=== PATIENT | male | born 1975 | race Hispanic/Latino ===

== ENCOUNTER 2023-09-23 19:20 | Inpatient (IN) | payer OTHER ==
[~2023-09-23] VITALS: Ht 180.3 cm; Wt 107.7 kg
[2023-09-23] MEDS: CEPHALEXIN 500 MG CAPSULE PO ONE (19:58)
[2023-09-23] MEDS: ACETAMINOPHEN 500 MG TABLET PO ONE (19:59)
[2023-09-23] MEDS: TETANUS/DIPHTHERIA TOXOID [ADULT] 0.5 ML VIAL IM ONE (20:00)
[2023-09-23] MEDS: NEOMY SULF/BACITRA/POLYMYXIN B 1 EACH PACKET TP ONE (20:00)
[2023-09-23] MEDS: LIDOCAINE HCL 1% 20 ML VIAL INJ SCH (20:00)
[2023-09-23] MEDS: CEFAZOLIN SODIUM 2 GM VIAL IVPB SCH (22:11)
[2023-09-23] MEDS ORDERED: IOHEXOL 350 MG/ML 100ML INFUS..BTL IV ONE (22:37)
[2023-09-23 22:40] LABS: BASOPHILS # (AUTO) 0.06 K/uL (0.00-0.20); BASOPHILS % (AUTO) 0.4 % (0.0-5.0); EOSINOPHILS # (AUTO) 0.06 K/uL (0.00-0.70); EOSINOPHILS % (AUTO) 0.4 % (0.0-8.0); HEMATOCRIT 44.9 % (42-54); IMMATURE GRANULOCYTE ABSOLUTE 0.05 K/uL (0-1); LYMPHOCYTES # (AUTO) 2.4 K/uL (1.0-4.8); LYMPHOCYTES % (AUTO) 14.9 % (21.0-51.0); MEAN CORPUSCULAR HEMOGLOBIN 28.4 pg (27.0-33.0); MEAN CORPUSCULAR HGB CONC 33.6 g/dL (32.0-36.0); MEAN CORPUSCULAR VOLUME 84.6 fL (79-99); MONOCYTES # (AUTO) 1.2 K/uL (0.1-1.0); MONOCYTES % (AUTO) 7.2 % (3.0-13.0); NEUTROPHILS # (AUTO) 12.5 K/uL (1.8-7.7); NEUTROPHILS % (AUTO) 76.8 % (40.0-77.0); PLATELET COUNT (AUTO) 237 K/uL (130-400); RED BLOOD CELL COUNT(AUTO) 5.31 MIL/uL (4.50-6.20); RED CELL DISTRIBUTION WIDTH 13.8 % (11.0-15.5); WHITE BLOOD COUNT (AUTO) 16.3 K/uL (4.8-10.8)
[2023-09-23] MEDS: ONDANSETRON 4MG INJ IVP ONE (22:47)
[2023-09-23] MEDS: MORPHINE 2 MG SYG IVP ONE (22:48)
[2023-09-23] MEDS: 0.9%NACL 1000ML 1,000 ML IV SCH (22:48)
[2023-09-23 22:49] LABS: CREATININE 1.4 mg/dL (0.5-1.3); POTASSIUM 3.4 mmol/L (3.5-5.1)
[2023-09-23 23:03] LABS: INR 1.11 (0.85-1.15)
[2023-09-23 23:04] LABS: PARTIAL THROMBOPLASTIN TIME 25.7 SEC (26.3-35.5)
[2023-09-24] MEDS ORDERED: LACTULOSE 20 GM/30 ML UDCUP PO PRN (00:30)
[2023-09-24] MEDS ORDERED: CEFAZOLIN SODIUM IV SCH (00:30)
[2023-09-24] MEDS ORDERED: DiphenhydrAMINE HCL 50 MG/ML VIAL IV PRN (00:30)
[2023-09-24] MEDS ORDERED: [UNRECOGNIZED DRUG - OTHER] IV SCH (00:30)
[2023-09-24] MEDS ORDERED: ONDANSETRON 4MG INJ IV PRN (00:30)
[2023-09-24] MEDS ORDERED: ACETAMINOPHEN 325 MG TAB PO PRN (00:30)
[2023-09-24] MEDS ORDERED: GUAIFENESIN-DM 200/20 MG 10 ML PO PRN (00:30)
[2023-09-24] MEDS ORDERED: FAMOTIDINE 20MG VIAL IV PRN (00:30)
[2023-09-24] MEDS ORDERED: ZOLPIDEM TARTRATE 5 MG TAB PO PRN (00:30)
[2023-09-24] MEDS ORDERED: MAG/ALUM/SIMETH 30 ML UDCUP PO PRN (00:30)
[2023-09-24] MEDS ORDERED: NITROGLYCERIN 0.4 MG SL TAB SL PRN (00:30)
[2023-09-24] MEDS ORDERED: HYDRALAZINE 20MG/ML VIAL IV PRN (00:30)
[2023-09-24] MEDS: MORPHINE 2 MG SYG IVP PRN (00:54)
[2023-09-24] MEDS: 0.9%NACL 1000ML 1,000 ML IV SCH (00:56)
[2023-09-24] MEDS: CEFAZOLIN SODIUM 1 GM VIAL IVPB SCH (01:00)
[2023-09-24 01:14] LABS: BASOPHILS # (AUTO) 0.05 K/uL (0.00-0.20); BASOPHILS % (AUTO) 0.4 % (0.0-5.0); EOSINOPHILS # (AUTO) 0.08 K/uL (0.00-0.70); EOSINOPHILS % (AUTO) 0.6 % (0.0-8.0); HEMATOCRIT 41.2 % (42-54); IMMATURE GRANULOCYTE ABSOLUTE 0.05 K/uL (0-1); LYMPHOCYTES # (AUTO) 1.8 K/uL (1.0-4.8); LYMPHOCYTES % (AUTO) 13.3 % (21.0-51.0); MEAN CORPUSCULAR HEMOGLOBIN 29.2 pg (27.0-33.0); MEAN CORPUSCULAR HGB CONC 33.5 g/dL (32.0-36.0); MEAN CORPUSCULAR VOLUME 87.1 fL (79-99); MONOCYTES % (AUTO) 7.3 % (3.0-13.0); NEUTROPHILS # (AUTO) 10.5 K/uL (1.8-7.7); PLATELET COUNT (AUTO) 197 K/uL (130-400); RED BLOOD CELL COUNT(AUTO) 4.73 MIL/uL (4.50-6.20); RED CELL DISTRIBUTION WIDTH 13.8 % (11.0-15.5); WHITE BLOOD COUNT (AUTO) 13.4 K/uL (4.8-10.8)
[2023-09-24] MEDS: TRAMADOL HCL 50 MG TABLET PO PRN (01:57)
[2023-09-24 02:08] LABS: APPEARANCE,URINE CLEAR (CLEAR); BILIRUBIN,URINE NEGATIVE (NEGATIVE); COLOR,URINE COLORLESS (YELLOW); GLUCOSE, URINE (UA) NEGATIVE (NEGATIVE); KETONES,URINE NEGATIVE (NEGATIVE); LEUKOCYTE ESTERASE ,URINE NEGATIVE Leu/uL (NEGATIVE); NITRATE,URINE NEGATIVE (NEGATIVE); OCCULT BLOOD,URINE NEGATIVE (NEGATIVE); PH,URINE 6.5 (5.0-8.0); PROTEIN,URINE NEGATIVE (NEGATIVE); UROBILINOGEN,URINE 0.2 mg/dL (0.2-1.0)
[2023-09-24 02:13] LABS: SQUAMOUS EPITHELIAL CELL,UR RARE /HPF (0-2); WBC,URINE 0-1 /HPF (0-1)
[2023-09-24] MEDS ORDERED: OLME20TA68 PO (02:20)
[2023-09-24 02:40] VITALS: BP 156/75; PULSE 80; RESP 16
[2023-09-24] MEDS: INSULIN HUMULIN R 100 UNIT/ML 3ML SQ SCH (06:05)
[2023-09-24 08:00] VITALS: BP 155/76; PULSE 89; RESP 18
[2023-09-24] MEDS: HEPARIN 5,000 UNIT VIAL SQ SCH (09:00)
[2023-09-24] MEDS: FAMOTIDINE 20MG VIAL IV SCH (10:39)
[2023-09-24 12:00] VITALS: BP 156/75; PULSE 90; RESP 18
[2023-09-24 15:59] VITALS: TEMP 102.3
[2023-09-24] MEDS: ACETAMINOPHEN 325 MG TAB PO PRN (15:59)
[2023-09-24 16:00] VITALS: BP 147/77; PULSE 86; RESP 18
[2023-09-24] MEDS ORDERED: DEXAMETHASONE SOD PHOSPHATE 4 MG/ML 1ML VIAL IV ONE (18:30)
[2023-09-24 19:00] VITALS: BP 146/79; PULSE 81; RESP 22
[2023-09-24] MEDS: [UNRECOGNIZED DRUG - OTHER] IV ONE (19:20)
[2023-09-24] MEDS: DEXAMETHASONE IV ONE (19:20)
[2023-09-25] VITALS (9 sets, daily range): BP systolic 132–148; BP diastolic 62–79; PULSE 60–80; RESP 16–24; O2SAT 92–95
[2023-09-25 06:10] LABS: BASOPHILS # (AUTO) 0.01 K/uL (0.00-0.20); BASOPHILS % (AUTO) 0.1 % (0.0-5.0); HEMATOCRIT 43.4 % (42-54); IMMATURE GRANULOCYTE ABSOLUTE 0.06 K/uL (0-1); LYMPHOCYTES # (AUTO) 1.3 K/uL (1.0-4.8); LYMPHOCYTES % (AUTO) 8.4 % (21.0-51.0); MEAN CORPUSCULAR HEMOGLOBIN 28.9 pg (27.0-33.0); MEAN CORPUSCULAR HGB CONC 33.4 g/dL (32.0-36.0); MEAN CORPUSCULAR VOLUME 86.6 fL (79-99); MONOCYTES % (AUTO) 5.9 % (3.0-13.0); NEUTROPHILS # (AUTO) 13.6 K/uL (1.8-7.7); NEUTROPHILS % (AUTO) 85.2 % (40.0-77.0); PLATELET COUNT (AUTO) 210 K/uL (130-400); RED BLOOD CELL COUNT(AUTO) 5.01 MIL/uL (4.50-6.20); RED CELL DISTRIBUTION WIDTH 14.4 % (11.0-15.5)
[2023-09-25 06:23] LABS: INR 1.3 (0.85-1.15)
[2023-09-25 06:37] LABS: HEMOGLOBIN A1C 6.2 % (4.0-6.0)
[2023-09-25 06:44] LABS: ALBUMIN 3.8 g/dL (3.5-5.0); BILIRUBIN,TOTAL 0.9 mg/dL (0.2-1.0); CREATININE 1.1 mg/dL (0.5-1.3); MAGNESIUM 1.8 mg/dL (1.80-2.40); POTASSIUM 3.8 mmol/L (3.5-5.1); THYROID STIMULATING HORMONE 0.17 uIU/mL (0.36-3.74); TOTAL PROTEIN, SERUM 7.6 g/dL (6.0-8.3)
[2023-09-25] MEDS: MAGNESIUM 2GM PREMIX 50ML 50 ML IV PRN (07:08)
[2023-09-26] VITALS: BP 137/89; PULSE 85; RESP 16
[2023-09-26 03:41] VITALS: BP 154/86; PULSE 60; RESP 16
[2023-09-26 04:28] LABS: BASOPHILS # (AUTO) 0.04 K/uL (0.00-0.20); BASOPHILS % (AUTO) 0.3 % (0.0-5.0); EOSINOPHILS # (AUTO) 0.08 K/uL (0.00-0.70); EOSINOPHILS % (AUTO) 0.6 % (0.0-8.0); HEMATOCRIT 42.6 % (42-54); IMMATURE GRANULOCYTE ABSOLUTE 0.06 K/uL (0-1); LYMPHOCYTES # (AUTO) 2.8 K/uL (1.0-4.8); LYMPHOCYTES % (AUTO) 19.5 % (21.0-51.0); MEAN CORPUSCULAR HEMOGLOBIN 29.1 pg (27.0-33.0); MEAN CORPUSCULAR HGB CONC 33.1 g/dL (32.0-36.0); MONOCYTES # (AUTO) 1.5 K/uL (0.1-1.0); MONOCYTES % (AUTO) 10.8 % (3.0-13.0); NEUTROPHILS # (AUTO) 9.7 K/uL (1.8-7.7); NEUTROPHILS % (AUTO) 68.4 % (40.0-77.0); PLATELET COUNT (AUTO) 192 K/uL (130-400); RED BLOOD CELL COUNT(AUTO) 4.84 MIL/uL (4.50-6.20); RED CELL DISTRIBUTION WIDTH 14.1 % (11.0-15.5); WHITE BLOOD COUNT (AUTO) 14.2 K/uL (4.8-10.8)
[2023-09-26 04:52] LABS: ALBUMIN 3.3 g/dL (3.5-5.0); BILIRUBIN,TOTAL 0.6 mg/dL (0.2-1.0); CREATININE 1.2 mg/dL (0.5-1.3); POTASSIUM 3.5 mmol/L (3.5-5.1); TOTAL PROTEIN, SERUM 6.9 g/dL (6.0-8.3)
[2023-09-26 08:00] VITALS: BP 142/78; PULSE 72; RESP 18; O2SAT 97
[2023-09-26] MEDS: ACETAMINOPHEN 325 MG TAB PO PRN (11:15)
[2023-09-26 12:00] VITALS: BP 135/71; PULSE 68; RESP 17
== END 2023-09-26 17:30 | disposition short-term general hospital (02) | DRG 85 ==
LOC: EDH 19:20 → EDHIP 09-24 00:27 → 3BH 09-24 02:23
PROVIDERS: ADMIT Hospitalist; ATTEND Hospitalist
PROC: 0HQ1XZZ Repair Face Skin, External Approach (ICD-10-PCS; principal; 2023-09-23)
PROC: 09QKXZZ Repair Nasal Mucosa and Soft Tissue, External Approach (ICD-10-PCS; 2023-09-23)
PROC: 3E0234Z Introduction of Serum, Toxoid and Vaccine into Muscle, Percutaneous Approach (ICD-10-PCS; 2023-09-23)
DX: S02.19XA Other fracture of base of skull, initial encounter for closed fracture (principal); N17.0 Acute kidney failure with tubular necrosis; T79.7XXA Traumatic subcutaneous emphysema, initial encounter; R65.10 Systemic inflammatory response syndrome (SIRS) of non-infectious origin without acute organ dysfunction; S01.82XA Laceration with foreign body of other part of head, initial encounter; K40.90 Unilateral inguinal hernia, without obstruction or gangrene, not specified as recurrent; I10 Essential (primary) hypertension; D72.829 Elevated white blood cell count, unspecified; E66.9 Obesity, unspecified; T38.0X5A Adverse effect of glucocorticoids and synthetic analogues, initial encounter; V18.4XXA Pedal cycle driver injured in noncollision transport accident in traffic accident, initial encounter; Y93.55 Activity, bike riding; Y99.8 Other external cause status; Z68.33 Body mass index [BMI] 33.0-33.9, adult; Z23 Encounter for immunization
CPT/HCPCS: 36415; 70450; 70486; 71101; 71250; 72125; 74176; 80048; 80053; 81001; 82550; 82948; 83036; 83605; 83735; 83880; 84100; 84443; 85025; 85610; 85730; 87088; 90471; 90714; 96365; 96375; G0378; J0690; J1100; J1644; J2270; J2405; J3475; J3490; J7030; Q9967